=== PATIENT | male | born 1930 | race Caucasian/White ===

== ENCOUNTER → 2016-08-03 | Outpatient (CLI) | payer MEDICARE ==
--- NOTE | 2016-08-03 14:53 | REP ---
Chest two views HISTORY: Shortness of breath Comparison: 10/27/2012 The lungs are clear. The cardiac silhouette is enlarged. The pulmonary vasculature is normal in appearance. Degenerative change is present in the thoracic spine. IMPRESSION: Cardiomegaly. Signed by Juanito Soto MD 08/03/2016 02:44 P
== END ==
LOC: M SMT 14:26
PROVIDERS: ATTEND Internal Medicine Pulmonary Disease
DX: R06.02 Shortness of breath (principal)

== ENCOUNTER → 2016-08-05 | Outpatient (REF) | payer MEDICARE ==
[2016-08-05 18:21] LABS: BASO % 0.7 % (0.0-1.0); EOS # 0.6 K/mm3 (0.0-0.50); LARGE UNSTAINED CELL # 0.2 K/mm3 (0.0-0.4); LARGE UNSTAINED CELL % 2.6 % (0.0-4.0); LYMPH % 25.3 % (24.0-44.0); MEAN CORPUSCULAR HEMOGLOBIN 32.9 pg (27.0-33.0); MEAN CORPUSCULAR HGB CONC 34.9 g/dl (32.0-36.5); MEAN CORPUSCULAR VOLUME 94.3 fl (80.0-96.0); MONO # 0.5 K/mm3 (0.0-0.8); MONO % 6.6 % (0.0-5.0); NEUTROPHILS # 4.6 K/mm3 (1.8-7.7); NEUTROPHILS % 57.8 % (36.0-66.0); PLATELET COUNT, AUTOMATED 258 k/mm3 (150-450); RED CELL DISTRIBUTION WIDTH 12.7 % (11.5-14.5); WHITE BLOOD COUNT 7.9 K/mm3 (4.0-10.0)
[2016-08-13 08:06] LABS: L PNEUMOPHILIA 1-6 IgG <1:128 (<1:128); L PNEUMOPHILIA 1-6 IgM < 1:16 (< 1:16)
== END ==
LOC: M LAB REF 16:55
PROVIDERS: ATTEND Internal Medicine Pulmonary Disease
DX: R05 Cough (principal)

== ENCOUNTER → 2016-10-15 | Outpatient (REF) | payer MEDICARE ==
[2016-10-15 13:13] LABS: BLOOD UREA NITROGEN 16 MG/DL (7-18); CREATININE FOR GFR 0.93 MG/DL (0.70-1.30); GLOMERULAR FILTRATION RATE > 60.0 (>35); URIC ACID 6.9 MG/DL (3.5-7.2)
== END ==
LOC: M LABDRAW1 12:17
PROVIDERS: ATTEND Orthopaedic Surgery
DX: M79.661 Pain in right lower leg (principal)

== ENCOUNTER 2018-07-11 07:58 | Day surgery (SDC) | payer MEDICARE ==
[~2018-07-11] VITALS: Ht 162.6 cm; Wt 96.5 kg
[~2018-07-11 07:58] MED LIST: ASPI81TA26 PO; BISO5TAB5 PO; HYDR25TAB PO; LOSA50TA88 PO; LR 1,000 ML IV ONE; ceFAZolin SOD 1 GM in D5W MINI-BAG PLUS 50 ML IV ONE
[2018-07-11] MEDS ORDERED: BUPIVACAINE/EPIN 0.25% 30 ML VIAL As Ordered ONE (09:15)
[2018-07-11] MEDS ORDERED: PROPOFOL 200 MG/20 ML VIAL As Ordered ONE (09:17)
[2018-07-11] MEDS ORDERED: ROCURONIUM BROMIDE 50 MG/5 ML VIAL As Ordered ONE (09:17)
[2018-07-11] MEDS ORDERED: fentaNYL 100 MCG/2 ML INJECTION (J3010) As Ordered ONE (09:18)
[2018-07-11] MEDS ORDERED: PHENYLephrine HCL 500 MCG/5 ML (100MCG/ML) SYRINGE (J2370) As Ordered ONE (09:59)
[2018-07-11] MEDS ORDERED: ESMOLOL INJ 100MG/10ML VIAL As Ordered ONE (10:42)
[2018-07-11] MEDS ORDERED: ONDANSETRON 4MG/2ML VIAL (J2405) As Ordered ONE (10:50)
[2018-07-11] MEDS ORDERED: SUGAMMADEX SODIUM 500 MG/5 ML VIAL (BRIDION) As Ordered ONE (10:50)
--- NOTE | 2018-07-11 11:10 | RO ---
DATE OF PROCEDURE: 07/11/2018 PREOPERATIVE DIAGNOSIS: Left inguinal hernia. POSTOPERATIVE DIAGNOSIS: Left inguinal hernia (direct). PROCEDURE: Robotic-assisted left inguinal hernia repair with ProGrip mesh. SURGEON: Dr. Woody Youssef CATTLE TESTER: Guerda Garrison who provided trocar placement, removal and instrument exchange, and mesh placement. ANESTHESIA: General endotracheal anesthesia. ESTIMATED BLOOD LOSS: Minimal. FLUIDS: Crystalloid. BRIEF PROCEDURE SUMMARY: The patient was brought to the operating room and was given general anesthesia. After adequate anesthesia and preoperative antibiotics were given, the patient was prepped and draped in the usual sterile fashion. Next, a supraumbilical incision was made with skin knife. Blunt dissection was carried down to fascia. Veress needle was placed into the abdominal cavity and insufflated to 15 mm of pressure. A dilating 8 mm trocar was placed at that time and under direct visualization two lateral 8 mm trocars were placed. The patient was placed in Trendelenburg. Targeting was performed after the robot was docked without difficulty and the monopolar scissors were used to take down the peritoneum on the left-hand side as well as some blunt and sharp dissection. The patient had a relatively fatty layer underneath the peritoneum in this area, but this layer came down relatively well. Then, the direct hernia was moderately large and was able to be reduced quite nicely. Luis M's ligament was seen in posterior aspect of pubis and nicely visualized as well. The cord structures were visualized and the vessels medial to these. After adequate mobilization of the peritoneum in this area, the mesh was placed in the preperitoneal space and pressed into position. Good coverage was appreciated throughout. Then the peritoneum was closed over the top of this using a running 3-0 V-Loc. Next, all trocars were removed under direct visualization and 4-0 Vicryl was used close all incisions. Steri-Strips and a dry sterile dressing was applied. The patient was awakened, extubated and brought to the recovery room awake, alert, and hemodynamically stable. Sponge and needle counts were correct times two.
[2018-07-11] MEDS ORDERED: HYDROMORPHONE HCL 0.5 MG/ 0.5 ML SYRINGE (J1170 PER 1) IV PRN (11:30)
[2018-07-11] MEDS ORDERED: ONDANSETRON 4MG/2ML VIAL (J2405) IV PRN ×2 (11:30)
[2018-07-11] MEDS ORDERED: PERCOCET 5MG/325MG TAB PO PRN (11:30)
[2018-07-11] MEDS ORDERED: NORCO, ANEXSIA 5/325MG TABLET (HYDROcodone/ACETAMINOPHEN) PO PRN (11:30)
[2018-07-11] MEDS ORDERED: LR 1,000 ML IV SCH ×2 (11:30)
[2018-07-11] MEDS ORDERED: fentaNYL 100 MCG/2 ML INJECTION (J3010) IV PRN (11:30)
[2018-07-11 12:05] VITALS: BP 167/90
== END 2018-07-11 14:34 | disposition home or self-care (01) ==
LOC: M SDC 07:58
PROVIDERS: ATTEND Surgery
DX: K40.90 Unilateral inguinal hernia, without obstruction or gangrene, not specified as recurrent (principal); I10 Essential (primary) hypertension; I48.2 Chronic atrial fibrillation; E78.00 Pure hypercholesterolemia, unspecified; E88.81 Metabolic syndrome and other insulin resistance; Z79.899 Other long term (current) drug therapy; Z79.82 Long term (current) use of aspirin; Z86.79 Personal history of other diseases of the circulatory system; Z87.891 Personal history of nicotine dependence
CPT/HCPCS: 49650; C1781; J0690; J2370; J2405; J3010